=== PATIENT | male | born 1940 | race Hispanic/Latino ===

== ENCOUNTER 2016-07-24 10:49 | Emergency (ER) | payer MEDICARE, MEDICAID ==
[~2016-07-24] VITALS: Ht 162.6 cm; Wt 72.3 kg
[~2016-07-24 10:49] MED LIST: MELO15TA14 PO; MTF850T PO; TAM4 PO; VIT D PO; ZES10 PO
[2016-07-24 11:15] VITALS: BP 184/76; PULSE 58; RESP 16; O2SAT 97
--- NOTE | 2016-07-24 11:51 | ED.REPORT ---
HPI-General Illness Date of Service Jul 24, 2016 ED Provider: Constantino Vick MD Pt is a 76 y/o male w/ a hx of chronic back pain, arthritis, HTN, presenting to the ED with his who is also a patient c/o lumbar back pain with radiation to the bilateral legs onset years ago. He also c/o bilateral shoulder pain which is chronic. The shooting pains from his back to his legs causes him bilateral leg weakness which often causes him to fall to the ground. There have been no significant injuries or loss of consciousness during any of these falls. He denies bladder or bowel incontinence, fever, chills, SOB. Nursing Notes Stated Complaint: PAINFUL LOWER BACK AND UPPER SHOULDERS,CHEST PAIN Chief Complaint: General Complaint Nursing Notes Reviewed: Yes Allergies: Coded Allergies: No Known Allergies (Verified Allergy, Unknown, 07/24/16) Scheduled ([Vit D]) 50,000 UNIT PO DAILY Lisinopril-Expunged Drug, Do Not Renew! (Lisinopril-Expunged Drug, Do Not Renew! ) 10 Mg Tablet 10 MG PO DAILY Metformin-Expunged Drug, Do Not Renew! (Metformin-Expunged Drug, Do Not Renew!) 850 Mg Tablet 1 TAB PO DAILY TAKE WITH EVENING MEAL Tamsulosin-Expunged Drug, Do Not Renew! (Flomax-Expunged Drug, Do Not Renew!) 0.4 Mg Capsule 0.4 MG PO BID Scheduled PRN Ibuprofen (Ibuprofen) 600 Mg Tablet 600 MG PO QID PRN PRN For Pain Miscellaneous Medications Meloxicam-Expunged Drug, Do Not Renew! (Mobic-Expunged Drug, Do Not Renew!) 15 Mg Tablet 15 MG PO General Time Seen by MD: 11:48 Chief Complaint Other (back pain) Hx Obtained From: Patient Arrived By: Walk-in Sudden in Onset?: No Onset Occurred: More than a week ago... Symptom Duration: Since onset Location: : Back Quality: Painful Severity: Current: Mild Severity: Maximum: Moderate Similar Sx Previous: Yes Past Medical History Past Medical History Hypertension Arthritis Chronic back pain Past Surgical History Prostate Cataracts Smoking History Former Smoker Social History Alcohol Use: "Social" Other Social History: Ambulatory Status Independent Review of Systems Full Review of Systems Constitutional: Denies: Chills, Fever Respiratory: Denies: Non-productive cough, Shortness of breath Cardiovascular: Denies: Chest pain, Dyspnea on exertion GI: Denies: Abdominal pain, Diarrhea, Nausea, Vomiting Musculoskeletal: Reports: Back pain, Extremity pain, Lumbar pain Neurologic: Reports: Weakness, Denies: Bladder dysfunction, Bowel dysfunction, Change LOC, Focal weakness Complete sys rev & neg: except as marked. Physical Exam Vital Signs Vital Signs Date Time Temp Pulse Resp B/P Pulse Ox O2 Delivery O2 Flow Rate FiO2 07/24/16 15:15 54 16 176/78 99 Room Air 07/24/16 12:48 52 187/75 99 07/24/16 11:15 36.2 58 16 184/76 97 Room Air Initial VS: Reviewed, Vital signs abnormal Head / Eyes: Atraumatic, Normocephalic, PERRL ENT: Mucous membranes moist, Conjunctiva normal, No scleral icterus Neck: Supple, Full range of motion Respiratory: Breath sounds normal, Clear to auscultation, No respiratory distress Cardiovascular: Regular rate & rhythm, Heart sounds normal, Intact distal pulses Abdomen / GI: Soft, Non-tender Extremities: Vascular intact, Neuro intact, No swelling, No tenderness Skin: Warm, Dry, No cyanosis Neurologic: Alert, Oriented, Nonfocal Psychiatric: Mood/affect normal, Behavior normal, Normal thought content Back: Atraumatic, Full range of motion, No midline vertebral tend Straight Leg Raise: Positive: Strt leg raise + L 50 deg, Strt leg raise + R 50 deg Diffuse low back tenderness Interpretation & Diagnostics Lab Results Interpretation Result Diagram: 07/24/16 1210 07/24/16 1210 Test 07/24/16 12:10 07/24/16 12:20 07/24/16 12:34 White Blood Count 6.1th/mm3 (3.8-10.1) Red Blood Count 4.57mil/mm3 (4.40-5.80) Hemoglobin 13.9g/dL (13.8-17.2) Hematocrit 40.7% (41.0-50.0) Mean Corpuscular Volume 89.1fL (81-100) Mean Corpuscular Hemoglobin 30.4pg (27.0-35.0) Mean Corpuscular Hemoglobin Concent 34.2% (32.0-37.0) Red Cell Distribution Width 14.9% (12.3-15.4) Platelet Count 210bil/L (150-400) Neutrophils (%) (Auto) 64.8% (40-74) Lymphocytes (%) (Auto) 23.3% (14-46) Monocytes (%) (Auto) 8.2% (4-12) Eosinophils (%) (Auto) 2.8% (0-5) Basophils (%) (Auto) 0.7% (0-3) Prothrombin Time 10.0sec (8.1-12.5) Prothromb Time International Ratio 0.94ratio Sodium Level 142mEq/L (134-144) Potassium Level 3.5mEq/L (3.5-5.2) Chloride Level 104mEq/L (97-108) Carbon Dioxide Level 23mmol/L (18-29) Blood Urea Nitrogen 22mg/dL (8-27) Creatinine 0.79mg/dL (0.76-1.27) Estimat Glomerular Filtration Rate 102mL/min (>59) Glucose Level 114mg/dL (60-99) Calcium Level 9.0mg/dL (8.5-10.1) Magnesium Level 2.0mg/dL (1.6-2.6) Total Bilirubin 0.8mg/dL (0.0-1.2) Aspartate Amino Transf (AST/SGOT) 23U/L (0-50) Alanine Aminotransferase (ALT/SGPT) 18U/L (0-44) Alkaline Phosphatase 106U/L (25-160) Troponin T < 0.010ug/L (0.0-0.011) Total Protein 6.4g/dL (6.4-8.4) Albumin 3.9g/dL (3.4-5.0) Lipase 46U/L (13-60) Urine Color Yellow (YELLOW) Urine Appearance Clear (CLEAR,HAZY) Urine pH 5.5 (5.0-8.0) Urine Specific [place] 1.025 (1.003-1.035) Urine Protein Negativemg/dL (NEG,TRACE) Urine Glucose (UA) Negativemg/dL (NEGATIVE) Urine Ketones Negativemg/dL (NEGATIVE) Urine Occult Blood Negative (NEGATIVE) Urine Nitrite Negative (NEGATIVE) Urine Bilirubin Negative (NEGATIVE) Urine Urobilinogen Normalmg/dL (NORMAL) Urine Leukocyte Esterase Negative (NEGATIVE) Urine RBC 0-2/hpf (0-2) Urine WBC 0-5/hpf (0-5) Urine Epithelial Cells Occasional/hpf (NONE-MOD) Urine Crystals None seen (NONE SEEN) Urine Bacteria Few/hpf (NONE-FEW) Urine Hyaline Casts None/lpf (NONE) Urine Granular Casts None seen (NONE SEEN) Urine Waxy Casts None seen (NONE SEEN) Urine Red Blood Cell Casts None seen (NONE SEEN) Urine White Blood Cell Casts None seen (NONE SEEN) Urine Mucus Present (None Seen) Urine Trichomonas None seen (NONE SEEN) Urine Yeast None (NONE SEEN) Urinalysis Comment None Urine Culture Reflexed Not indicated Hold San Top Tube Received (Received) ECG Interpretation Time: 13:38 Interpreted by: ED physician Normal ECG Interpretation: Normal ECG w/ rate of... (52), Normal rate, Normal sinus rhythm, No acute ischemic changes, Normal QRS, Normal axis, Normal intervals, Adequate tracing X-Ray Chest Interpretation Chest Xray Interpretation: IMPRESSION: No acute process. Dictated by: Steven Vega M.D. on 07/24/2016 at 13:34 Approved by: Steven Vega M.D. on 07/24/2016 at 13:34 View: Portable, 1 view Interpretation / Wet Read by: Interpret - Radiologist Re-Eval/Medical Decision Med Decision/Clinical Course 76-year-old male with low back pain radiating down the back of both legs for many years. Denies any trauma. No neurological deficits. Improved with Toradol. Straight leg raise positive suggestive of sciatica. We will treat with NSAIDs and referral to primary doctor for possible as above therapy and further management.. Time of Eval: 13:24 Re-Evaluation/Progress Note: Pt rechecked. Informed pt of plan for treatment. Pt understands and agrees with plan for treatment. F/U instructions and RTER warnings given. All questions addressed. Counseled Regarding: Diagnosis, Lab results, Need for follow-up, When/why to return to ED Discharge & Departure Primary Impression: Bilateral low back pain with sciatica Chronicity: chronic Sciatica laterality: bilateral sciatica Qualified Code : M54.42 - Lumbago with sciatica, left side Disposition: Home Discharge Condition All VS Reviewed: Yes Condition: Stable Patient Instructions: Sciatica (ED) Additional Instructions: Your physical exam and interview is consistent with sciatica, inflammation of the nerve that runs from the back down to the leg. Your problems will best be managed by your primary care doctor. Return to the emergency department if you experience bowel or bladder incontinence, inability to walk, severe pain, high fever, or for other concerning symptoms. Follow-up with your primary care doctor next week to come up with a personalized care plan. Referrals: Kamala Soni MD (PCP) Gavin Attestation Portions of this note were transcribed by Silver Gil and Alex Trujillo. I, Dr. Vick personally performed the history, physical exam and medical decision-making; I reviewed and confirmed the accuracy of the information in the transcribed note. Signed by Silver Gil and Gavin Bustamante, 07/24/16 - [id number] copies to: Kamala Soni MD, Ben M MD Jul 24, 2016 11:51 SILVER GIL Jul 24, 2016 13:25
[2016-07-24 12:21] LABS: BASOPHILS % (AUTO) 0.7 % (0-3); EOSINOPHILS % (AUTO) 2.8 % (0-5); MONOCYTES % (AUTO) 8.2 % (4-12); Mean Corpuscular Hemoglobin 30.4 pg (27.0-35.0); Mean Corpuscular Volume 89.1 fL (81-100); NEUTROPHILS % (AUTO) 64.8 % (40-74); Platelet Count 210 bil/L (150-400)
[2016-07-24 12:42] LABS: INR 0.94 ratio
[2016-07-24 12:48] VITALS: BP 187/75; PULSE 52; O2SAT 99
[2016-07-24 13:18] LABS: TROPONIN T < 0.010 ug/L (0.0-0.011)
[2016-07-24 13:20] LABS: Lipase 46 U/L (13-60)
[2016-07-24 13:29] LABS: APPEARANCE,URINE CLEAR (CLEAR,HAZY); COLOR,URINE YELLOW (YELLOW); OCCULT BLOOD,URINE NEGATIVE (NEGATIVE); PH,URINE 5.5 (5.0-8.0); UROBILINOGEN,URINE NORMAL (NORMAL)
--- NOTE | 2016-07-24 13:35 | DRSVH ---
PROCEDURE: X-RAY CHEST, TWO VIEWS ([id number]) INDICATIONS: CHEST PAIN TECHNIQUE: 2 views of the chest were acquired. COMPARISON: [facility], , CHEST 2VW, 07/26/2008, 14:59. FINDINGS: Surgical changes and devices: None. Lungs and pleura: No pleural effusions or pneumothorax. Lungs are clear. Mediastinum: Mediastinal contours are normal. Heart size is normal. Bones and chest wall: No suspicious bony abnormalities. Soft tissues appear unremarkable. IMPRESSION: No acute process. Dictated by: Steven Vega M.D. on 07/24/2016 at 13:34 Approved by: Steven Vega M.D. on 07/24/2016 at 13:34
[2016-07-24] MEDS ORDERED: IBUP-1827 PO (13:42)
[2016-07-24 15:15] VITALS: BP 176/78; PULSE 54; RESP 16; O2SAT 99
== END 2016-07-24 15:22 | disposition home or self-care (01) ==
LOC: SED 10:49
DX: M54.42 Lumbago with sciatica, left side (principal); I10 Essential (primary) hypertension; Z87.891 Personal history of nicotine dependence
CPT/HCPCS: 36415; 71020; 80053; 81000; 82948; 83690; 83735; 84484; 85025; 85610; 93005; 96372; 99284; J1885